=== PATIENT | male | born 2000 | race Caucasian/White ===

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

== ENCOUNTER 2020-01-14 10:28 | Emergency (ER) | payer MEDICAID ==
[~2020-01-14] VITALS: Ht 172.7 cm; Wt 65.9 kg
[2020-01-14 13:14] VITALS: BP 100/77
== END 2020-01-14 13:00 | disposition home or self-care (01) ==
LOC: ER 10:28
DX: S63.91XA Sprain of unspecified part of right wrist and hand, initial encounter (principal); F12.90 Cannabis use, unspecified, uncomplicated; Z79.899 Other long term (current) drug therapy; W18.39XA Other fall on same level, initial encounter; Y93.89 Activity, other specified; Y92.89 Other specified places as the place of occurrence of the external cause; Y99.8 Other external cause status
CPT/HCPCS: 29105; 73130; 99283

== ENCOUNTER 2020-11-01 11:42 | Emergency (ER) | payer MEDICAID ==
[~2020-11-01] VITALS: Ht 172.7 cm; Wt 70.5 kg
[2020-11-01] MEDS ORDERED: CefTRIAXone 1000mg IM Kit (w/lidocaine diluent) IM STA (12:18)
[2020-11-01] MEDS ORDERED: metroNIDAZOLE 500mg tablet PO ONE (12:20)
[2020-11-01] MEDS ORDERED: azithromycin 250mg tablet PO ONE (12:20)
[2020-11-01 12:38] LABS: CLARITY,URINE SLIGHTLY CLOUDY (Clear); COLOR,URINE YELLOW (Yellow); GLUCOSE, URINE NEGATIVE (Neg); KETONES,URINE NEGATIVE (Neg); LEUKOCYTE ESTERASE ,URINE LARGE (Neg); NITRITES, URINE NEGATIVE (Neg); OCCULT BLOOD,URINE SMALL (Neg); PROTEIN,URINE NEGATIVE (Neg); UROBILINOGEN,URINE 0.2 E.U/dL (0.2-1.0)
[2020-11-01 12:39] LABS: UA COLLECTION TYPE VOIDED
[2020-11-01 12:42] VITALS: BP 117/70
[2020-11-01 12:47] LABS: BACTERIA,URINE FEW /HPF (Neg); MUCUS STRANDS NONE SEEN /LPF (Neg); RBC,URINE 0-2 /HPF (0-2); SQUAMOUS EPITHELIAL CELL,UR FEW /LPF (FEW); WBC CLUMPS,URINE MODERATE /HPF (NEGATIVE); WBC,URINE TNTC /HPF (0-4)
== END 2020-11-01 12:44 | disposition home or self-care (01) ==
LOC: ER 11:42
DX: A64 Unspecified sexually transmitted disease (principal); N48.89 Other specified disorders of penis; F12.90 Cannabis use, unspecified, uncomplicated; Z72.89 Other problems related to lifestyle; Z79.899 Other long term (current) drug therapy
CPT/HCPCS: 36415; 81001; 87088; 87491; 87591; 96372; 99283; J0696; 87077; 87185; J3490

== ENCOUNTER 2021-02-07 21:32 | Emergency (ER) | payer MEDICAID ==
[~2021-02-07] VITALS: Ht 172.7 cm; Wt 72.7 kg
[2021-02-07 21:41] VITALS: BP 108/64
--- NOTE | 2021-02-07 22:37 | NUR ---
PT EXTREMELY BELIGERANT. BEING OBNOXIOUS. STATES WERE TAKING TOO LONG. PA HERE TO SEE HIM, AND HE IS BEING ARROGANT. PA TOLD HIM IT WASN'T BROKEN AND HE WAS ASKED TO LEAVE AND HE WANTS TO LEAVE. HE KEPT STATING HE WAS GOING TO 'THE OTHER HOSPITAL THEY ARE FASTER.' PT SO DRUNK HE DOESN'T EVEN KNOW HE HAS ONLY BEEN HERE FOR 55 MINUTES FROM REGISTRATION TIME.
== END 2021-02-07 22:40 | disposition home or self-care (01) ==
LOC: ER 21:33
DX: S93.401A Sprain of unspecified ligament of right ankle, initial encounter (principal); M25.571 Pain in right ankle and joints of right foot; F12.90 Cannabis use, unspecified, uncomplicated; Z72.89 Other problems related to lifestyle; Z79.899 Other long term (current) drug therapy; X50.1XXA Overexertion from prolonged static or awkward postures, initial encounter; Y93.89 Activity, other specified; Y92.89 Other specified places as the place of occurrence of the external cause; Y99.8 Other external cause status
CPT/HCPCS: 73610; 99283

== ENCOUNTER 2021-06-01 14:16 | Emergency (ER) | payer MEDICAID ==
[~2021-06-01] VITALS: Ht 172.7 cm; Wt 68.2 kg
[2021-06-01 14:51] VITALS: BP 129/79
== END 2021-06-01 16:19 | disposition home or self-care (01) ==
LOC: ER 14:17
DX: B34.9 Viral infection, unspecified (principal); Z20.822 Contact with and (suspected) exposure to COVID-19; F12.10 Cannabis abuse, uncomplicated
CPT/HCPCS: 87635; 99283; C9803

== ENCOUNTER 2021-12-03 11:42 | Emergency (ER) | payer MEDICAID ==
[~2021-12-03] VITALS: Ht 172.7 cm; Wt 68.2 kg
[2021-12-03 11:47] VITALS: BP 130/65
[2021-12-03] MEDS ORDERED: CefTRIAXone 500MG IM Kit w/LIDOcaine IM ONE (14:25)
[2021-12-03] MEDS ORDERED: DOXY-1 PO (14:33)
[2021-12-03] MEDS: CefTRIAXone 500MG IM Kit w/LIDOcaine IM ONE (14:44)
[2021-12-03] MEDS: azithromycin 250mg tablet PO ONE (14:45)
== END 2021-12-03 14:47 | disposition home or self-care (01) ==
LOC: ER 11:42
DX: N45.1 Epididymitis (principal); N43.3 Hydrocele, unspecified; I86.1 Scrotal varices; N50.811 Right testicular pain; R10.30 Lower abdominal pain, unspecified; F12.90 Cannabis use, unspecified, uncomplicated; Z72.89 Other problems related to lifestyle; Z79.2 Long term (current) use of antibiotics
CPT/HCPCS: 76870; 93976; 96372; 99284; J0696